=== PATIENT | female | born 2000 | race Caucasian/White ===

== ENCOUNTER 2020-11-09 12:14 | Inpatient (IN) ==
[2020-11-09 13:00] LABS: Appearance Urine Cloudy (Clear); Bacteria Urine Automated 2+ (Negative); Blood Urine 3+ (Negative); Color Urine Dark Yellow; Epithelial Cell Urine Auto >30 /lpf (0-5); Glucose Urine UA Negative (Negative); Ketones Urine 3+ (Negative); Leukocyte Esterase Urine 2+ (Negative); Nitrite Urine Negative (Negative); Pregnancy Test, Urine Negative (Negative); Protein Urine 1+ (Negative); Specific Gravity Urine 1.036 (1.000-1.030); Urobilinogen Urine Negative (Negative); WBC Urine Automated >30 /hpf (0-5)
[2020-11-09 13:05] LABS: Bilirubin Urine 1+ (Negative)
[2020-11-09 13:09] LABS: Basophils # (auto) 0.01 K/uL (0-0.2); Basophils % (auto) 0.1 %; Eosinophils # (auto) 0.01 K/uL (0-0.5); Eosinophils % (auto) 0.1 %; Hematocrit (blood only) 38.1 % (37-47); Immature Granulocytes # (auto) 0.01 K/uL (0.00-0.02); Immature Granulocytes % (auto) 0.1 %; Lymphocytes # (auto) 2.02 K/uL (1.2-3.4); Lymphocytes % (auto) 26.2 %; Mean Corpuscular Hgb Conc 34.1 g/dL (32-36); Mean Corpuscular Volume 82.1 fL (80-100); Mean Platelet Volume 9.8 fL (7.4-10.4); Monocytes # (auto) 0.31 K/uL (0.11-0.59); Neutrophils # (auto) 5.35 K/uL (1.4-6.5); Neutrophils % (auto) 69.5 %; Platelet Count 264 K/uL (130-400); RDW Coefficient of Variation 13.5 % (11.5-14.5); RDW Standard Deviation 40.9 fL (36.4-46.3); Red Blood Count 4.64 M/uL (4.2-5.4); White Blood Count 7.71 K/uL (4.8-10.8)
[2020-11-09 13:18] LABS: Mucus Urine Present (None Prsent)
[2020-11-09 13:25] LABS: Amphetamines+Metham, Urine Neg (Neg); Barbiturates, Urine Neg (Neg); Benzodiazepine, Urine Neg (Neg); Cocaine, Urine Neg (Neg); MDMA (Ecstacy), Urine Neg (Neg); Methadone, Urine Neg (Neg); Opiate, Urine Neg (Neg); Phencyclidine, Urine Neg (Neg)
[2020-11-09 13:26] LABS: Albumin Level 3.8 gm/dl (3.4-5.0); BUN Creatinine Ratio 20.8 (10-20); Calcium 9.3 mg/dl (8.5-10.1); Creatinine Clr Calc Pharmacy 118.7 ml/min; Est GFR (African American) 149.4; Est GFR (Non-African American) 128.9; Potassium 3.7 mmol/L (3.5-5.1)
[2020-11-09 13:37] LABS: Albumin Globulin Ratio 0.8 (0.9-2); Bilirubin,Total 0.4 mg/dl (0.2-1); Globulin 4.6 gm/dl (2.5-4.0); Thyroid Stimulating Hormone 0.517 uIu/ml (0.300-4.500); Total Protein 8.4 gm/dl (6.4-8.2)
[2020-11-09 13:38] LABS: Acetaminophen < 2 ug/ml (10-30)
[2020-11-09 13:39] LABS: Salicylate < 1.7 mg/dl (2.8-20)
--- NOTE | 2020-11-09 14:55 | Emergency Department Note ---
Impression & Plan Mood disorder ED Provider Note NAME: CHIQUI BERGERON AGE: 20 SEX: F : 2000 ARRIVES VIA: [employer] INFORMANT: [Patient][, ] ED PROVIDER(S): [Butch Patel MD] CHIEF COMPLAINT: suicidal HPI: This is a 20-year-old female who presents emergency department complaining of feeling suicidal. The patient reports she had a recent break-up with an ex- boyfriend. She began texting him today and he replied with some "hurtful words". The patient then cut herself. An unknown individual called the police who found the patient at her dorm room. I will note that the patient was recently here in the emergency department for feeling depression. She reports nothing has made the suicidal thoughts better or worse. She has not taken anything for the suicidal thoughts prior to arrival. The patient does have a history of attempting to hang herself back in 2019. ROS: See above HPI for pertinent positives & negatives. A total of 10 systems reviewed and were otherwise negative. PAST MEDICAL HISTORY: See Below PAST SURGICAL HISTORY: See Below FAMILY HISTORY: See Below SOCIAL HISTORY: See Below HOME MEDICATIONS: See Below ALLERGIES: See Below VITALS: See Below PHYSICAL EXAMINATION: VITAL SIGNS - Vital signs and nursing notes were reviewed. GENERAL - 20-year-old female appearing stated age who is in no acute distress. Communicates well with provider and answers questions appropriately. SKIN - Without rashes. HEAD - NC/AT. EYES - PERRL with EOMI bilaterally. Sclera anicteric. Palpebral conjunctiva pink and moist with no injection noted. EARS - No deformities of external structures noted on gross examination bilaterally. NOSE - Midline and without cyanosis. No epistaxis or purulent drainage noted. Septum midline without deviation or septal hematoma noted. MOUTH/OROPHARYNX - Without perioral cyanosis. Buccal mucosa pink and moist and without leukoplakia. Tongue midline with equal elevation of palate bilaterally. No tonsillar hypertrophy, erythema, or exudates noted. NECK - Neck with FROM. Supple to palpation. No nuchal rigidity. LUNGS - Chest wall symmetric without accessory muscle use, intercostals retractions, or central cyanosis. Normal vesicular breath sounds CTA B/L. No wheezes, rales, or rhonchi appreciated. CARDIAC - RRR with S1/S2. No murmur, rubs, or gallops appreciated. ABDOMEN - Abdominal contour without pulsations or visible masses. BS normoactive all four quadrants. No tenderness, palpable masses, hepatosplenomeg melanie, or ascites noted. EXTREMITIES - No clubbing or peripheral cyanosis. No pretibial edema present. +3/5 radial, posterior tibial, and dorsalis pedis pulses palpated throughout. +5/5 strength noted in UE/LE bilaterally. NEUROLOGIC - Cranial nerves II through XII grossly intact. Sensory intact to light touch throughout. Patellar reflexes +2/4. PSYCH - A&Ox3 and cooperates fully with examiner. Pt is very pleasant and interacts well with examiner. MEDICAL DECISION MAKING: Patient was seen and evaluated as above in room A7. Review was performed of nursing notes and vital signs. I did review pertinent previous visits and patient history. After obtaining a thorough history and physical examination the above work up was performed. This is a 20-year-old female who presents emergency department complaining of mood disorder. The patient apparently has a plan to cut herself to commit tomas cide. She comes in with superficial abrasions. I will note that this is the patient's second visit to the emergency department this week. Based on this I strongly recommended that the patient have an inpatient stay as I am concerned about her escalating behavior. I did discuss the patient's urinalysis with the patient. She does not feels that she is having any symptoms so at this point we will hold off on an antibiotic until urine culture grows out. Patient is in agreement with the treatment plan. She was then medically cleared by me and independently evaluated by psychiatric case management who also felt that the patient is a high risk patient to go home. The patient was subsequently admitted to 3 . The patient was evaluated during a period of high volume and high acuity during the global COVID-19 pandemic, and that diagnosis was suspected/considered upon their initial presentation. Their evaluation, treatment and testing was consistent with current guidelines for patients who present with complaints or symptoms that may be related to COVID-19. Patient was seen while provider was wearing PPE. Triage Nursing notes reviewed. Prior medical records reviewed Vital Signs: reviewed and remarkable for no significant abnormalities Differential diagnosis: Mood disorder, infection, hypoglycemia, electrolyte abnormalities, cardiac sources, intracerebral event, toxicologic, trauma, neurologic, as well as other pathologies. ER treatment provided: See below Past Med/Surg History Medical History (Updated 11/11/20 @ 15:13 by Butch Patel MD) Anxiety No significant past medical history Suicidal ideation Surgical History No significant past surgical history Social History Smoking Status: Never smoker Preferred Language: [place] Communication Ability: Effective Beliefs That Will Affect Care: Holiness Holiness Beliefs: anglican marital status: Single current occupational status: student Feels Safe at Home: Yes Assistive Devices: Contacts Allergies Allergies Allergy/AdvReac Type Severity Reaction Status Date / Time nitrofurantoin Allergy Rash Verified 11/09/20 16:47 [From Macrobid] sulfamethoxazole Allergy Rash Verified 11/09/20 16:47 [From Bactrim] trimethoprim [From Bactrim] Allergy Rash Verified 11/09/20 16:47 Home Meds Home Medications Medication Instructions Recorded Confirmed drospirenone-ethinyl estradiol 1 tab PO DAILY 10/31/20 11/09/20 [Nani ()] escitalopram oxalate 15 mg PO DAILY 10/31/20 11/09/20 Results & Data (ED) Vital Signs Vital Signs - 24 hr 11/09/20 12:23 11/09/20 14:48 Temperature 37.3 C Temperature Source Oral Pulse Rate 85 Pulse Rate [Right Finger] 65 Pulse Rhythm Regular Pulse Strength Normal Respiratory Rate 16 16 Respiratory Effort / Characteristics Non-Labored Spontaneous Non-Labored Spontaneous Respiratory Depth Normal Normal Blood Pressure 118/74 Blood Pressure [Right Arm] 117/65 Blood Pressure Mean 88 Blood Pressure Mean [Right Arm] 82 Blood Pressure Position Sitting Pulse Oximetry 100 100 Oxygen Delivery Method Room Air Room Air Laboratory Data Result diagrams: 11/09/20 12:55 11/09/20 12:55 Lab Results 11/09/20 11/09/20 11/09/20 Range/Units 12:22 12:22 12:22 WBC (4.8-10.8) K/uL RBC (4.2-5.4) M/uL Hgb (12.0-16.0) g/dL Hct (37-47) % MCV (80-100) fL MCH (25-34) pg MCHC (32-36) g/dL RDW Std Deviation (36.4-46.3) fL RDW Coeff of Tony (11.5-14.5) % Plt Count (130-400) K/uL MPV (7.4-10.4) fL Immature Gran % (Auto) % Neut % (Auto) % Lymph % (Auto) % Routt % (Auto) % Eos % (Auto) % Baso % (Auto) % Neut # (Auto) (1.4-6.5) K/uL Lymph # (Auto) (1.2-3.4) K/uL Routt # (Auto) (0.11-0.59) K/uL Eos # (Auto) (0-0.5) K/uL Baso # (Auto) (0-0.2) K/uL Immature Gran # (Auto) (0.00-0.02) K/uL Sodium (136-145) mmol/L Potassium (3.5-5.1) mmol/L Chloride (98-107) mmol/L Carbon Dioxide (21-32) mmol/L Anion Gap (3-11) BUN (7-18) mg/dl Creatinine (0.6-1.2) mg/dl Est Cr Clr Drug Dosing ml/min Est GFR ( Amer) Est GFR (Non-Af Amer) BUN/Creatinine Ratio (10-20) Glucose (70-99) mg/dl Calcium (8.5-10.1) mg/dl Total Bilirubin (0.2-1) mg/dl AST (15-37) U/L ALT (12-78) U/L Alkaline Phosphatase (45-117) U/L Total Protein (6.4-8.2) gm/dl Albumin (3.4-5.0) gm/dl Globulin (2.5-4.0) gm/dl Albumin/Globulin Ratio (0.9-2) TSH (0.300-4.500) uIu/ml Urine Color Dark Yellow Urine Appearance Cloudy A (Clear) Urine pH 6.0 (4.5-7.5) Ur Specific [place] 1.036 H (1.000-1.030) Urine Protein 1+ H (Negative) Urine Glucose (UA) Negative (Negative) Urine Ketones 3+ H (Negative) Urine Blood 3+ H (Negative) Urine Nitrite Negative (Negative) Urine Bilirubin 1+ H (Negative) Urine Urobilinogen Negative (Negative) Ur Leukocyte Esterase 2+ H (Negative) Urine WBC (Auto) >30 H (0-5) /hpf Urine RBC (Auto) 5-10 H (0-4) /hpf U Hyaline Cast (Auto) 1-5 (0-5) /lpf U Epithel Cells (Auto) >30 H (0-5) /lpf Urine Bacteria (Auto) 2+ H (Negative) Urine Mucus Present A (None Prsent) Urine Yeast Not Reportable Urine Test Negative (Negative) Salicylates (2.8-20) mg/dl Urine Opiates Screen Neg (Neg) Ur Methadone, Qual Neg (Neg) Acetaminophen (10-30) ug/ml Urine Barbiturates Neg (Neg) Ur Phencyclidine (PCP) Neg (Neg) U Amphetamin/Meth Scrn Neg (Neg) MDMA (Ecstasy) Screen Neg (Neg) U Benzodiazepines Scrn Neg (Neg) Ur Cocaine Metabolite Neg (Neg) U Marijuana (THC) Screen Neg (Neg) Ethyl Alcohol mg/dL (0-3) mg/dl COVID-19 Eval Order SARS-CoV-2 (PCR) (Negative) Influenza Type A (PCR) (Neg) Influenza Type B (PCR) (Neg) RSV (RT-PCR) (Neg) 11/09/20 11/09/20 11/09/20 Range/Units 12:55 12:55 12:55 WBC 7.71 (4.8-10.8) K/uL RBC 4.64 (4.2-5.4) M/uL Hgb 13.0 (12.0-16.0) g/dL Hct 38.1 (37-47) % MCV 82.1 (80-100) fL MCH 28.0 (25-34) pg MCHC 34.1 (32-36) g/dL RDW Std Deviation 40.9 (36.4-46.3) fL RDW Coeff of Tony 13.5 (11.5-14.5) % Plt Count 264 (130-400) K/uL MPV 9.8 (7.4-10.4) fL Immature Gran % (Auto) 0.1 % Neut % (Auto) 69.5 % Lymph % (Auto) 26.2 % Routt % (Auto) 4.0 % Eos % (Auto) 0.1 % Baso % (Auto) 0.1 % Neut # (Auto) 5.35 (1.4-6.5) K/uL Lymph # (Auto) 2.02 (1.2-3.4) K/uL [place] # (Auto) 0.31 (0.11-0.59) K/uL Eos # (Auto) 0.01 (0-0.5) K/uL Baso # (Auto) 0.01 (0-0.2) K/uL Immature Gran # (Auto) 0.01 (0.00-0.02) K/uL Sodium 139 (136-145) mmol/L Potassium 3.7 (3.5-5.1) mmol/L Chloride 108 H (98-107) mmol/L Carbon Dioxide 22 (21-32) mmol/L Anion Gap 9.0 (3-11) BUN 13 (7-18) mg/dl Creatinine 0.62 (0.6-1.2) mg/dl Est Cr Clr Drug Dosing 118.7 ml/min Est GFR ( Amer) 149.4 Est GFR (Non-Af Amer) 128.9 BUN/Creatinine Ratio 20.8 H (10-20) Glucose 71 (70-99) mg/dl Calcium 9.3 (8.5-10.1) mg/dl Total Bilirubin 0.4 (0.2-1) mg/dl AST 22 (15-37) U/L ALT 25 (12-78) U/L Alkaline Phosphatase 68 (45-117) U/L Total Protein 8.4 H (6.4-8.2) gm/dl Albumin 3.8 (3.4-5.0) gm/dl Globulin 4.6 H (2.5-4.0) gm/dl Albumin/Globulin Ratio 0.8 L (0.9-2) TSH 0.517 (0.300-4.500) uIu/ml Urine Color Urine Appearance (Clear) Urine pH (4.5-7.5) Ur Specific [place] (1.000-1.030) Urine Protein (Negative) Urine Glucose (UA) (Negative) Urine Ketones (Negative) Urine Blood (Negative) Urine Nitrite (Negative) Urine Bilirubin (Negative) Urine Urobilinogen (Negative) Ur Leukocyte Esterase (Negative) Urine WBC (Auto) (0-5) /hpf Urine RBC (Auto) (0-4) /hpf U Hyaline Cast (Auto) (0-5) /lpf U Epithel Cells (Auto) (0-5) /lpf Urine Bacteria (Auto) (Negative) Urine Mucus (None Prsent) Urine Yeast Urine Test (Negative) Salicylates < 1.7 L (2.8-20) mg/dl Urine Opiates Screen (Neg) Ur Methadone, Qual (Neg) Acetaminophen < 2 L (10-30) ug/ml Urine Barbiturates (Neg) Ur Phencyclidine (PCP) (Neg) U Amphetamin/Meth Scrn (Neg) MDMA (Ecstasy) Screen (Neg) U Benzodiazepines Scrn (Neg) Ur Cocaine Metabolite (Neg) U Marijuana (THC) Screen (Neg) Ethyl Alcohol mg/dL (0-3) mg/dl COVID-19 Eval Order SARS-CoV-2 (PCR) (Negative) Influenza Type A (PCR) (Neg) Influenza Type B (PCR) (Neg) RSV (RT-PCR) (Neg) 11/09/20 11/09/20 11/09/20 Range/Units 12:55 16:40 16:40 WBC (4.8-10.8) K/uL RBC (4.2-5.4) M/uL Hgb (12.0-16.0) g/dL Hct (37-47) % MCV (80-100) fL MCH (25-34) pg MCHC (32-36) g/dL RDW Std Deviation (36.4-46.3) fL RDW Coeff of Tony (11.5-14.5) % Plt Count (130-400) K/uL MPV (7.4-10.4) fL Immature Gran % (Auto) % Neut % (Auto) % Lymph % (Auto) % [place] % (Auto) % Eos % (Auto) % Baso % (Auto) % Neut # (Auto) (1.4-6.5) K/uL Lymph # (Auto) (1.2-3.4) K/uL [place] # (Auto) (0.11-0.59) K/uL Eos # (Auto) (0-0.5) K/uL Baso # (Auto) (0-0.2) K/uL Immature Gran # (Auto) (0.00-0.02) K/uL Sodium (136-145) mmol/L Potassium (3.5-5.1) mmol/L Chloride (98-107) mmol/L Carbon Dioxide (21-32) mmol/L Anion Gap (3-11) BUN (7-18) mg/dl Creatinine (0.6-1.2) mg/dl Est Cr Clr Drug Dosing ml/min Est GFR ( Amer) Est GFR (Non-Af Amer) BUN/Creatinine Ratio (10-20) Glucose (70-99) mg/dl Calcium (8.5-10.1) mg/dl Total Bilirubin (0.2-1) mg/dl AST (15-37) U/L ALT (12-78) U/L Alkaline Phosphatase (45-117) U/L Total Protein (6.4-8.2) gm/dl Albumin (3.4-5.0) gm/dl Globulin (2.5-4.0) gm/dl Albumin/Globulin Ratio (0.9-2) TSH (0.300-4.500) uIu/ml Urine Color Urine Appearance (Clear) Urine pH (4.5-7.5) Ur Specific [place] (1.000-1.030) Urine Protein (Negative) Urine Glucose (UA) (Negative) Urine Ketones (Negative) Urine Blood (Negative) Urine Nitrite (Negative) Urine Bilirubin (Negative) Urine Urobilinogen (Negative) Ur Leukocyte Esterase (Negative) Urine WBC (Auto) (0-5) /hpf Urine RBC (Auto) (0-4) /hpf U Hyaline Cast (Auto) (0-5) /lpf U Epithel Cells (Auto) (0-5) /lpf Urine Bacteria (Auto) (Negative) Urine Mucus (None Prsent) Urine Yeast Urine Test (Negative) Salicylates (2.8-20) mg/dl Urine Opiates Screen (Neg) Ur Methadone, Qual (Neg) Acetaminophen (10-30) ug/ml Urine Barbiturates (Neg) Ur Phencyclidine (PCP) (Neg) U Amphetamin/Meth Scrn (Neg) MDMA (Ecstasy) Screen (Neg) U Benzodiazepines Scrn (Neg) Ur Cocaine Metabolite (Neg) U Marijuana (THC) Screen (Neg) Ethyl Alcohol mg/dL < 3.0 (0-3) mg/dl COVID-19 Eval Order [facility] at [facility] SARS-CoV-2 (PCR) NEGATIVE (Negative) Influenza Type A (PCR) Negative (Neg) Influenza Type B (PCR) Negative (Neg) RSV (RT-PCR) Negative (Neg) Administered Medications Buspirone HCl (Buspirone 5 Mg Tab) 5 mg PO BID [facility] Stop: 12/10/20 10:59 Last Admin: 11/11/20 09:06 Dose: 5 mg Documented by: [id number] Admin: 11/10/20 21:00 Dose: 5 mg Documented by: [id number] Admin: 11/10/20 11:23 Dose: 5 mg Documented by: [id number] *Vashtiyna*Non- Formulary Patient's Own Med 1 ea PO HS [facility]; Protocol Stop: 12/10/20 21:59 Last Admin: 11/11/20 09:38 Dose: 1 ea Documented by: [id number] Admin: 11/10/20 20:59 Dose: 1 ea Documented by: [id number] Discontinued Medications Escitalopram Oxalate ([facility]ital[facility] Ox[facility] 20 Mg Tab) [facility] [place] [facility] [place]: 12/10/20 08:59 Last Admin: 11/10/20 09:12 Dose: 20 mg Documented by: [id number] Discharge Plan Visit Data Chief Complaint: Mental Health Evaluation ED Provider: Butch Patel Discharge Problem: Mood disorder Patient Disposition: Admitted As Inpatient Discharge Instructions Interventions: ED Discharge Assessment Last Done: 11/09/20 19:30
[2020-11-09 18:02] LABS: Influenza A virus by PCR Negative (Neg); Influenza B virus by PCR Negative (Neg); RSV by PCR Negative (Neg); SARS CoV2 RNA(COVID-19) InHosp NEGATIVE (Negative)
[2020-11-09] MEDS ORDERED: ALUMINUM/MAGNESIUM SUSP 30 ML UDC PO PRN (19:22)
[2020-11-09] MEDS ORDERED: hydrOXYzine HCl 25 MG TAB PO PRN ×2 (19:22)
[2020-11-09] MEDS ORDERED: SODIUM CHLORIDE 0.65% NA SOLN 45 ML (OCEAN) PRN (19:22)
[2020-11-09] MEDS ORDERED: ACETAMINOPHEN 325 MG TAB PO PRN (19:22)
[2020-11-09] MEDS ORDERED: BISMUTH SUBSALICYLATE LIQD 236 ML PO PRN (19:22)
[2020-11-09] MEDS ORDERED: MAGNESIUM HYDROXIDE SUSP 30 ML UDC PO PRN (19:22)
--- NOTE | 2020-11-10 08:03 | History & Physical ---
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 (1) Suicidal ideation: 11/10 - Continue voluntary hospitalization, suicide checks for safety. - Encourage group attendance and participation, work on healthy coping skills and discharge safety plan. She would like a family meeting with her stepfather. - Coordinate w/ outpatient clinicians, will needs regular therapy and ongoing psychiatric care at discharge. (2) Depression: 11/10 - Exacerbated by recent breakup and hurtful statements from exboyfriend. Focused on wanting a short stay, with discharge over the weekend, as parents are coming and she plans to return home with them to [place]. - She has lost pavan in the escitalopram, does not feel it is helping sufficiently, and would like to try a different medication. She has no previous med trials, discussed trial of another SSRI, vs augmentation with buspirone. She would like to continue escitalopram 20 mg at bedtime and add buspirone to target anxiety, Will start 5mg bid and titrate as tolerated. Reviewed risks, benefits and side effects. Active/Remission status: currently active Depression Type: major depressive disorder Major depression episode severity: unspecified Major depression recurrence: recurrent Qualified Code(s): F33.9 - Major depressive disorder, recurrent, unspecified (3) Anxiety: 11/10 - symptoms of panic and CLIVE, has responded to SSRI, which was just increased 5 days ago as above. 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 Chief Complaint "A little overwhelmed". History of Present Illness Patient presented to the ER with suicidality, stating she recently had a break- up with her boyfriend 2 weeks ago, and they had been communicating by text and he said some "hurtful words." She cut her wrist, and an unknown individual then found her in her dorm room and called police. She had been seen in the ER a week prior for depression with fleeting suicidal thoughts in the context of the break-up, and was discharged home. She reported multiple stressors including the break-up, strained relationship with her mother, school, loneliness, and her mental health problems. She stated her psychiatrist in [place] had increased her Escitalopram last Saturday from 15 mg to 20 mg daily. She reported frequent crying spells, helplessness, hopelessness, low self-worth, difficulty functioning, poor motivation, decreased sleep and appetite, and loss of interest in most activities. She reported feeling anxious and overwhelmed on a daily basis. Inpatient treatment was recommended, and she was reluctant to sign herself in as she feared repercussions from her mother. She did call and speak to her stepfather on the phone, and then agreed to inpatient treatment. Admission labs notable for UA with elevated specific gravity, 1+ protein, 3+ ketones and blood, 1+ bilirubin, 2+ leukocyte esterase, > 30 WBCs and epithelial cells, and 2+ bacteria. Similar results from ER visit last week, with urine culture showing lactobacillus species. Urine culture from yesterday still pending. On my assessment, she states her boyfriend of 7 months broke up with her two weeks which has exacerbated mood. He ended the relationship "because of my mental health he didn't want to deal with me." She didn't want to he relationship to end and "tried to fix it," but now thinks it is for the best, as he made some very hurtful comments. She contacted her ex yesterday which made her feel worse, and she made comments that she "can't deal with this anymore," and tried to cut her wrist (no lesions visible, says it was a light scratch). Her ex called police who brought her here, and she is upset that she was hospitalized. Her mood has been "off" for the past month, and prior to that she had mostly anxiety. She identifies her boyfriend's "reaction to my anxiety" as the trigger for her depression, as she had tried to open up to him about how she was feeling and "it blew up in my face." She has a roommate who is supportive. She reports panic attacks with "nonstop crying and screaming" that used to last hours prior to starting medication, but now last 10-15 min. The past few weeks she has been ruminating on getting her boyfriend back. Is not sure if she worries excessively. 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 She has had suicidal thoughts "a couple times" in the past year. She's been on Lexapro since 2018, increased from 15mg to 20mg daily last Saturday. Denies h/o manic or psychotic episodes, OCD, eating disorder. States she didn't think mother would support her being hospitalized as when she was in the ER last week, she discouraged it. Past Psychiatric History Previous Psych History: First got treatment summer 2018, was seeing a family therapist due to issues with her mother, who also has anxiety and "gets angry and defensive." She then started individual therapy with the same therapist whom she still sees, but had not seen her "in a while" until recently. Current Psychiatric Diagnosis: Depression and anxiety Outpatient Services: Psychiatry (Dr. April Briceno) and therapy (Jane Ontiveros) in [place], off and on for past 2 years Do You Have Access To A Gun?: No History of Previous Suicide Attempt: Yes Describe Attempts in the Past: Tavares melvin, summer 2018, parents interrupted, was not hospitalized Past Medication Trials: none Allergies Allergy/AdvReac Type Severity Reaction Status Date / Time nitrofurantoin Allergy Rash Verified 11/09/20 16:47 [From Macrobid] sulfamethoxazole Allergy Rash Verified 11/09/20 16:47 [From Bactrim] trimethoprim [From Bactrim] Allergy Rash Verified 11/09/20 16:47 Home Medications Medication Instructions Recorded Confirmed Type drospirenone-ethinyl estradiol 1 tab PO DAILY 10/31/20 11/09/20 History [Nani (27)] escitalopram oxalate 15 mg PO DAILY 10/31/20 11/09/20 History Family History Family History of: Anxiety (mother) Alcohol History Hx of Alcohol Use Over the Past 12 Months: No AUDIT Total Score: 2 Smoking Use Have You Smoked or Used Tobacco Products in the Last 30 Days: No Smoking Status: Never smoker Substance History Hx of Prescription Med Misuse Over the Past 12 Months: No Hx of Over the Counter Med Misuse Over the Past 12 Months: No Hx of Inhalent Misuse Over the Past 12 Months: No Hx of Organic Substance Use Over the Past 12 Months: No Hx of Illegal Substances/Street Drug Use Over Past 12 Months: No Problems as a Result of Past Substance Use: None Identified Personal History Living Arrangements: Apartment Living Arrangements Comments: in [place] with several roommates Childhood: Grew up in [facility], parents when she was 4, and mother remarried when she was 8. Father also remarried, moved to [place], and did not speak to him or her stepfather for a few years, but reconciled a few years ago. Reports good relationship with all parents now. 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) Marital Status: Single Beliefs That Will Affect Care: Denominational Current Legal Problems: No Hx Traumatic Life Events: Yes Psychological Trauma History Comment: grandmother of cancer when patient was 13, was on hospice in their house Patient History Medical History (Updated 11/10/20 @ 10:23 by Francesca Scruggs MD) Anxiety No significant past medical history Suicidal ideation Surgical History No significant past surgical history Social History Smoking Status: Never smoker Preferred Language: Swedish Communication Ability: Effective Beliefs That Will Affect Care: Denominational Denominational Beliefs: lutheran marital status: Single current occupational status: student Feels Safe at Home: Yes Assistive Devices: Contacts Review of Systems Review of Systems: All systems reviewed & are unremarkable except as noted in Subjective Denies UTI and yeast infection symptoms Physical Exam Psychiatric: Orientation: alert and cooperative Apperance: appropriately dressed, appropriately groomed and appeared stated age Eye Contact: good eye contact Motor Behavior: steady gait and station and no abnormal motor movements Speech: normal rate/rhythm/volume of speech Affect: + depressed affect, + tearful affect and mood congruent with affect Mood: + depressed mood and + anxious mood Thought Process: goal directed thought process and linear/logical thought process Thought Content: reality based without delusions Suicidal Thoughts: denies suicidal thoughts Homicidal Thoughts: denies homicidal thoughts Hallucinations: no auditory hallucinations and no visual hallucinations Cognition: recent memory grossly intact, attention grossly intact and language grossly intact Vital Signs (Past 24 Hours): Last Vital Signs Temp 36.6 C 11/10/20 06:50 Pulse 91 H 11/10/20 06:51 Resp 16 11/10/20 06:50 BP 99/61 L 11/10/20 06:51 Pulse Ox 100 11/09/20 19:30 Exam Statement: A physical exam was performed in the ER prior to admission to the unit by Dr. Patel. I accept that physical as correct/medical clearance for the inpatient physical exam. Currently menstruating Results & Data ([facility]) Laboratory Results Laboratory Results - last 24 hr 11/09/20 11/09/20 11/09/20 12:22 12:22 12:22 WBC RBC Hgb Hct MCV MCH MCHC RDW Std Deviation RDW Coeff of Tony Plt Count MPV Immature Gran % (Auto) Neut % (Auto) Lymph % (Auto) [place] % (Auto) Eos % (Auto) Baso % (Auto) Neut # (Auto) Lymph # (Auto) [place] # (Auto) Eos # (Auto) Baso # (Auto) Immature Gran # (Auto) Sodium Potassium Chloride Carbon Dioxide Anion Gap BUN Creatinine Est Cr Clr Drug Dosing Est GFR ( Amer) Est GFR (Non-Af Amer) BUN/Creatinine Ratio Glucose Calcium Total Bilirubin AST ALT Alkaline Phosphatase Total Protein Albumin Globulin Albumin/Globulin Ratio TSH Urine Color Dark Yellow Urine Appearance Cloudy A Urine pH 6.0 Ur Specific [place] 1.036 H Urine Protein 1+ H Urine Glucose (UA) Negative Urine Ketones 3+ H Urine Blood 3+ H Urine Nitrite Negative Urine Bilirubin 1+ H Urine Urobilinogen Negative Ur Leukocyte Esterase 2+ H Urine WBC (Auto) >30 H Urine RBC (Auto) 5-10 H U Hyaline Cast (Auto) 1-5 U Epithel Cells (Auto) >30 H Urine Bacteria (Auto) 2+ H Urine Mucus Present A Urine Yeast Not Reportable Urine Test Negative Salicylates Urine Opiates Screen Neg Ur Methadone, Qual Neg Acetaminophen Urine Barbiturates Neg Ur Phencyclidine (PCP) Neg U Amphetamin/Meth Scrn Neg MDMA (Ecstasy) Screen Neg U Benzodiazepines Scrn Neg Ur Cocaine Metabolite Neg U Marijuana (THC) Screen Neg Ethyl Alcohol mg/dL COVID-19 Eval Order SARS-CoV-2 (PCR) Influenza Type A (PCR) Influenza Type B (PCR) RSV (RT-PCR) 11/09/20 11/09/20 11/09/20 12:55 12:55 12:55 WBC 7.71 RBC 4.64 Hgb 13.0 Hct 38.1 MCV 82.1 MCH 28.0 MCHC 34.1 RDW Std Deviation 40.9 RDW Coeff of Tony 13.5 Plt Count 264 MPV 9.8 Immature Gran % (Auto) 0.1 Neut % (Auto) 69.5 Lymph % (Auto) 26.2 [place] % (Auto) 4.0 Eos % (Auto) 0.1 Baso % (Auto) 0.1 Neut # (Auto) 5.35 Lymph # (Auto) 2.02 [place] # (Auto) 0.31 Eos # (Auto) 0.01 Baso # (Auto) 0.01 Immature Gran # (Auto) 0.01 Sodium 139 Potassium 3.7 Chloride 108 H Carbon Dioxide 22 Anion Gap 9.0 BUN 13 Creatinine 0.62 Est Cr Clr Drug Dosing 118.7 Est GFR ( Amer) 149.4 Est GFR (Non-Af Amer) 128.9 BUN/Creatinine Ratio 20.8 H Glucose 71 Calcium 9.3 Total Bilirubin 0.4 AST 22 ALT 25 Alkaline Phosphatase 68 Total Protein 8.4 H Albumin 3.8 Globulin 4.6 H Albumin/Globulin Ratio 0.8 L TSH 0.517 Urine Color Urine Appearance Urine pH Ur Specific [place] Urine Protein Urine Glucose (UA) Urine Ketones Urine Blood Urine Nitrite Urine Bilirubin Urine Urobilinogen Ur Leukocyte Esterase Urine WBC (Auto) Urine RBC (Auto) U Hyaline Cast (Auto) U Epithel Cells (Auto) Urine Bacteria (Auto) Urine Mucus Urine Yeast Urine Test Salicylates < 1.7 L Urine Opiates Screen Ur Methadone, Qual Acetaminophen < 2 L Urine Barbiturates Ur Phencyclidine (PCP) U Amphetamin/Meth Scrn MDMA (Ecstasy) Screen U Benzodiazepines Scrn Ur Cocaine Metabolite U Marijuana (THC) Screen Ethyl Alcohol mg/dL COVID-19 Eval Order SARS-CoV-2 (PCR) Influenza Type A (PCR) Influenza Type B (PCR) RSV (RT-PCR) 11/09/20 11/09/20 11/09/20 12:55 16:40 16:40 WBC RBC Hgb Hct MCV MCH MCHC RDW Std Deviation RDW Coeff of Tony Plt Count MPV Immature Gran % (Auto) Neut % (Auto) Lymph % (Auto) [place] % (Auto) Eos % (Auto) Baso % (Auto) Neut # (Auto) Lymph # (Auto) [place] # (Auto) Eos # (Auto) Baso # (Auto) Immature Gran # (Auto) Sodium Potassium Chloride Carbon Dioxide Anion Gap BUN Creatinine Est Cr Clr Drug Dosing Est GFR ( Amer) Est GFR (Non-Af Amer) BUN/Creatinine Ratio Glucose Calcium Total Bilirubin AST ALT Alkaline Phosphatase Total Protein Albumin Globulin Albumin/Globulin Ratio TSH Urine Color Urine Appearance Urine pH Ur Specific [place] Urine Protein Urine Glucose (UA) Urine Ketones Urine Blood Urine Nitrite Urine Bilirubin Urine Urobilinogen Ur Leukocyte Esterase Urine WBC (Auto) Urine RBC (Auto) U Hyaline Cast (Auto) U Epithel Cells (Auto) Urine Bacteria (Auto) Urine Mucus Urine Yeast Urine Test Salicylates Urine Opiates Screen Ur Methadone, Qual Acetaminophen Urine Barbiturates Ur Phencyclidine (PCP) U Amphetamin/Meth Scrn MDMA (Ecstasy) Screen U Benzodiazepines Scrn Ur Cocaine Metabolite U Marijuana (THC) Screen Ethyl Alcohol mg/dL < 3.0 COVID-19 Eval Order [facility] at [facility] SARS-CoV-2 (PCR) NEGATIVE Influenza Type A (PCR) Negative Influenza Type B (PCR) Negative RSV (RT-PCR) Negative Current Inpatient Medications Current Inpatient Medications: Current Inpatient Medications Acetaminophen (Acetaminophen 325 Mg Tab) 650 mg PO Q4H PRN PRN Reason: Headache or Minor Fever Stop: 12/09/20 19:21 Al Hydrox/Mg Hydrox/Simethicone (Aluminum/Magnesium Susp 30 Ml Udc) 30 ml PO Q4H PRN PRN Reason: GI Upset Stop: 12/09/20 19:21 Bismuth Subsalicylate (Bismuth Subsalicylate Liqd 236 Ml) 15 ml PO PRN PRN PRN Reason: Loose Stool Stop: 12/09/20 19:21 Escitalopram Oxalate (Escitalopram Oxalate 20 Mg Tab) 20 mg PO QAM MOISÉS Stop: 12/10/20 08:59 Hydroxyzine HCl (Hydroxyzine Hcl 25 Mg Tab) 50 mg PO HSZ PRN PRN Reason: Insomnia Stop: 12/09/20 19:21 Hydroxyzine HCl (Hydroxyzine Hcl 25 Mg Tab) 25 mg PO Q4H PRN PRN Reason: Anxiety Stop: 12/09/20 19:21 Magnesium Hydroxide (Magnesium Hydroxide Susp 30 Ml Udc) 30 ml PO DAILY PRN PRN Reason: Constipation Stop: 12/09/20 19:21 Sodium Chloride (Sodium Chloride 0.65% Na Soln 45 Ml ([place])) 1 - 2 sprays NA PRN PRN PRN Reason: Nasal Dryness/Congestion Stop: 12/09/20 19:21
[2020-11-10] MEDS ORDERED: ESCITALOPRAM OXALATE 20 MG TAB PO SCH (09:00)
[2020-11-10] MEDS ORDERED: DROSPIRENONE ETHINYL ESTRADIOL PO SCH (10:00)
[2020-11-10] MEDS: busPIRone 5 MG TAB PO SCH ×2 (11:23→21:00)
[2020-11-10] MEDS: LORYNA PO SCH (20:59)
[2020-11-11] MEDS: busPIRone 5 MG TAB PO SCH ×2 (09:06→21:21)
--- NOTE | 2020-11-11 09:33 | Psychiatric Progress Note ---
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 (1) Suicidal ideation: 11/10 - Continue voluntary hospitalization, suicide checks for safety. - Encourage group attendance and participation, work on healthy coping skills and discharge safety plan. She would like a family meeting with her stepfather. - Coordinate w/ outpatient clinicians, will needs regular therapy and ongoing psychiatric care at discharge. 11/11 - Pt denying SI today, assist with completion of written safety plan (2) Depression: 11/10 - Exacerbated by recent breakup and hurtful statements from exboyfriend. Focused on wanting a short stay, with discharge over the weekend, as parents are coming and she plans to return home with them to [place]. - She has lost pavan in the escitalopram, does not feel it is helping sufficiently, and would like to try a different medication. She has no previous med trials, discussed trial of another SSRI, vs augmentation with buspirone. She would like to continue escitalopram 20 mg at bedtime and add buspirone to target anxiety, Will start 5mg bid and titrate as tolerated. Reviewed risks, benefits and side effects. 11/11 - Continue current medication regimen. - Family meeting with parents yesterday, reportedly went well though there will be an ongoing need for open and honest communication with supports - Continue to encourage participation with group programming - Assist with completion of a written safety plan (3) Anxiety: 11/10 - symptoms of panic and CLIVE, has responded to SSRI, which was just increased 5 days ago as above. 11/11 - Continue as above - pt reporting initial fatigue with addition of buspirone, so will keep dose consistent for now. We did discuss option to continue titration as tolerated - Continue to assist with development of healthy and effective coping strategies Risk Factors Assessment Male: No : Yes Do You Have Access To A Gun?: No Health Problems: No Mental Health Diagnoses: Yes Substance Use Disorders: No Previous Attempt: Yes Family History of Suicide: No Previous Psychiatric Hospitalization: No Hopelessness: No Smoker: No Protective Factors Assessment : No Responsible for Young Children: No Employed: No Stable Relationships: Yes Supportive Family: Yes Good Rapport with Provider: Yes Interval History Identifying Information CHIQUI BERGERON is a 20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 Chief Complaint "Um, I've been very tired today, but mentally I'm very good." Review of Systems Notes Constitutional: reports fatigue today Cardiovascular: denied Respiratory: denied Gastrointestinal: denied Neurological: denied Psychiatric: denies symptoms other than stated above Total of at least 10 systems reviewed, pertinent positives as above and in HPI. Sleep Information Total Hours of Sleep: 6.5 Meal Information Percent Meal Consumed - Breakfast: 0 Percent Meal Consumed - Lunch: 100 Percent Meal Consumed - Dinner: 50 Nutrition Comment: pt. slept in Subjective Subjective Patient was seen & assessed and interval progress reviewed with treatment team. Staff report the patient has been participating in group and recreational programming. Pt had a family meeting with parents yesterday and has reportedly been processing feelings of abandonment, reportedly resurfacing in the context of recent break-up. Pt was seen today to assess progress since admission. Pt states she is doing well overall, and reports "I've been very tired today, but mentally I'm very good." She states it has been helpful to talk to individuals who have been going through similar circumstances. Pt states that she had a positive meeting with her parents. Plan was initially for her to return home with them when they arrive to town on Saturday, but she is now hoping to stay with her roommates and leave earlier. It does seem that she is benefitting from her time here, and she does deny continued SI. Pt states she has been working through her patient workbook, specifically sections on stress management and positive affirmations. Physical Exam Psychiatric Orientation: alert, oriented x 3 and cooperative Apperance: appropriately dressed, appropriately groomed and appeared stated age Eye Contact: good eye contact Motor Behavior: steady gait and station and no abnormal motor movements Speech: normal rate/rhythm/volume of speech Affect: + depressed affect and + tearful affect Mood: + depressed mood and + anxious mood though reports overall improvement with both Thought Process: goal directed thought process and clear/coherent thought process Thought Content: reality based without delusions; no hopelessness and no worthlessness Suicidal Thoughts: denies suicidal thoughts and denies suicidal intent Homicidal Thoughts: denies homicidal thoughts Hallucinations: no auditory hallucinations and no visual hallucinations Cognition: attention grossly intact and language grossly intact Estimated Intelligence: consistent with education level Insight: + fair insight Judgement: + fair judgement Vital Signs (Past 24 Hours) Last Vital Signs Temp 36.6 C 11/11/20 06:51 Pulse 91 H 11/11/20 06:52 Resp 16 11/11/20 06:51 BP 94/58 L 11/11/20 06:52 Pulse Ox 100 11/09/20 19:30 Results & Data ([facility] [place]) Current Inpatient Medications Current Inpatient Medications: Current Inpatient Medications Acetaminophen (Acetaminophen 325 Mg Tab) 650 mg PO Q4H PRN PRN Reason: Headache or Minor Fever Stop: 12/09/20 19:21 Al Hydrox/Mg Hydrox/Simethicone (Aluminum/Magnesium Susp 30 Ml Udc) 30 ml PO Q4H PRN PRN Reason: GI Upset Stop: 12/09/20 19:21 Bismuth Subsalicylate (Bismuth Subsalicylate Liqd 236 Ml) 15 ml PO PRN PRN PRN Reason: Loose Stool Stop: 12/09/20 19:21 Buspirone HCl (Buspirone 5 Mg Tab) 5 mg PO BID MOISÉS Stop: 12/10/20 10:59 Last Admin: 11/11/20 09:06 Dose: 5 mg Documented by: Escitalopram Oxalate (Escitalopram Oxalate 20 Mg Tab) 20 mg PO HS MOISÉS Stop: 12/11/20 21:59 Hydroxyzine HCl (Hydroxyzine Hcl 25 Mg Tab) 50 mg PO HSZ PRN PRN Reason: Insomnia Stop: 12/09/20 19:21 Hydroxyzine HCl (Hydroxyzine Hcl 25 Mg Tab) 25 mg PO Q4H PRN PRN Reason: Anxiety Stop: 12/09/20 19:21 Magnesium Hydroxide (Magnesium Hydroxide Susp 30 Ml Udc) 30 ml PO DAILY PRN PRN Reason: Constipation Stop: 12/09/20 19:21 *[place]*Non- Formulary Patient's Own Med 1 ea PO HS MOISÉS; Protocol Stop: 12/10/20 21:59 Last Admin: 11/10/20 20:59 Dose: 1 ea Documented by: Sodium Chloride (Sodium Chloride 0.65% Na Soln 45 Ml ([place])) 1 - 2 sprays NA PRN PRN PRN Reason: Nasal Dryness/Congestion Stop: 12/09/20 19:21 Mental Health & Subst Abuse Tx Psychiatrist Date of Appointment with Psychiatrist: 11/29/20 Therapist Name of Therapist: Jane Hagan (private practice in [place]) Post Discharge Appointments Primary Care Physician Name Of Family Doctor: Dr. [facility] (1) Depression Active/Remission status: currently active Depression Type: major depressive disorder Major depression episode severity: unspecified Major depression recurrence: recurrent Qualified Code(s): F33.9 - Major depressive disorder, recurrent, unspecified
[2020-11-11] MEDS: LORYNA PO SCH ×2 (09:38→21:22)
[2020-11-11] MEDS: ESCITALOPRAM OXALATE 20 MG TAB PO SCH (21:21)
[2020-11-12] MEDS: busPIRone 5 MG TAB PO SCH ×2 (08:57→21:17)
[2020-11-12] MEDS: LORYNA PO SCH ×2 (08:59→21:17)
--- NOTE | 2020-11-12 10:32 | Psychiatric Progress Note ---
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 Reviewed 11/12/20. (1) Suicidal ideation: 11/10 - Continue voluntary hospitalization, suicide checks for safety. - Encourage group attendance and participation, work on healthy coping skills and discharge safety plan. She would like a family meeting with her stepfather. - Coordinate w/ outpatient clinicians, will needs regular therapy and ongoing psychiatric care at discharge. 11/11 - Pt denying SI today, assist with completion of written safety plan Reviewed 11/12/20. She was hoping for discharge today to spend time with friends but reviewed safety plan included family coming to transition home and she was agreeable to continue observation and treatment until tomorrow. (2) Depression: 11/10 - Exacerbated by recent breakup and hurtful statements from exboyfriend. Focused on wanting a short stay, with discharge over the weekend, as parents are coming and she plans to return home with them to [place]. - She has lost pavan in the escitalopram, does not feel it is helping sufficiently, and would like to try a different medication. She has no previous med trials, discussed trial of another SSRI, vs augmentation with buspirone. She would like to continue escitalopram 20 mg at bedtime and add buspirone to target anxiety, Will start 5mg bid and titrate as tolerated. Reviewed risks, benefits and side effects. 11/11 - Continue current medication regimen. - Family meeting with parents yesterday, reportedly went well though there will be an ongoing need for open and honest communication with supports - Continue to encourage participation with group programming - Assist with completion of a written safety plan Reviewed 11/12/20. Continue Lexapro. (3) Anxiety: 11/10 - symptoms of panic and CLIVE, has responded to SSRI, which was just increased 5 days ago as above. 11/11 - Continue as above - pt reporting initial fatigue with addition of buspirone, so will keep dose consistent for now. We did discuss option to continue titration as tolerated - Continue to assist with development of healthy and effective coping strategies Reviewed 11/12/20. Continue Buspar. 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 Reviewed 11/12/20. Chief Complaint "I was hoping to see my friends but also know the plan is for me to be with my parents so I'm not alone.". Review of Systems Sleep Information Total Hours of Sleep: 8 Meal Information Percent Meal Consumed - Breakfast: 50 Percent Meal Consumed - Lunch: 75 Percent Meal Consumed - Dinner: 100 Nutrition Comment: pt. slept in Subjective Subjective Patient was seen & assessed and interval progress reviewed with nursing and social work. Cooperative with unit routines. Feels calmer but also states that Dennis is slightly sedating though gets up earlier here than when not in the hospital. discussed her transition [facility] [place] for fall. Physical Exam Psychiatric Orientation: alert, oriented x 3 and cooperative Apperance: appropriately dressed, appropriately groomed and appeared stated age Eye Contact: good eye contact Motor Behavior: steady gait and station and no abnormal motor movements Speech: normal rate/rhythm/volume of speech Affect: + depressed affect Mood: + depressed mood Thought Process: goal directed thought process Thought Content: reality based without delusions Suicidal Thoughts: denies suicidal thoughts and denies suicidal intent Homicidal Thoughts: denies homicidal thoughts Hallucinations: no auditory hallucinations and no visual hallucinations Cognition: recent memory grossly intact, attention grossly intact and language grossly intact Estimated Intelligence: consistent with education level Insight: + fair insight Judgement: + fair judgement Vital Signs (Past 24 Hours) Last Vital Signs Temp 36.7 C 11/12/20 06:00 Pulse 92 H 11/12/20 06:44 Resp 16 11/12/20 06:00 BP 99/64 L 11/12/20 06:44 Pulse Ox 100 11/09/20 19:30 Results & Data ([facility]) Current Inpatient Medications Current Inpatient Medications: Current Inpatient Medications Acetaminophen (Acetaminophen 325 Mg Tab) 650 mg PO Q4H PRN PRN Reason: Headache or Minor Fever Stop: 12/09/20 19:21 Al Hydrox/Mg Hydrox/Simethicone (Aluminum/Magnesium Susp 30 Ml Udc) 30 ml PO Q4H PRN PRN Reason: GI Upset Stop: 12/09/20 19:21 Bismuth Subsalicylate (Bismuth Subsalicylate Liqd 236 Ml) 15 ml PO PRN PRN PRN Reason: Loose Stool Stop: 12/09/20 19:21 Buspirone HCl (Buspirone 5 Mg Tab) 5 mg PO BID MOISÉS Stop: 12/10/20 10:59 Last Admin: 11/12/20 08:57 Dose: 5 mg Documented by: Escitalopram Oxalate (Escitalopram Oxalate 20 Mg Tab) 20 mg PO HS MOISÉS Stop: 12/11/20 21:59 Last Admin: 11/11/20 21:21 Dose: 20 mg Documented by: Hydroxyzine HCl (Hydroxyzine Hcl 25 Mg Tab) 50 mg PO HSZ PRN PRN Reason: Insomnia Stop: 12/09/20 19:21 Hydroxyzine HCl (Hydroxyzine Hcl 25 Mg Tab) 25 mg PO Q4H PRN PRN Reason: Anxiety Stop: 12/09/20 19:21 Magnesium Hydroxide (Magnesium Hydroxide Susp 30 Ml Udc) 30 ml PO DAILY PRN PRN Reason: Constipation Stop: 12/09/20 19:21 *Loryna*Non- Formulary Patient's Own Med 1 ea PO HS MOISÉS; Protocol Stop: 12/10/20 21:59 Last Admin: 11/12/20 08:59 Dose: 1 ea Documented by: Sodium Chloride (Sodium Chloride 0.65% Na Soln 45 Ml (Jal)) 1 - 2 sprays NA PRN PRN PRN Reason: Nasal Dryness/Congestion Stop: 12/09/20 19:21 Mental Health & Subst Abuse Tx Psychiatrist Name of Psychiatrist: Dr. April Briceno Date of Appointment with Psychiatrist: 11/29/20 Time of Appointment with Psychiatrist: 11:30 Therapist Name of Therapist: Jane Hagan (private practice in [place]) Cam Milling Machine Operator Name of Cam Milling Machine Operator: [facility] Phone Number for Cam Milling Machine Operator: [phone] Date of Appointment with Cam Milling Machine Operator: 11/15/20 Time of Appointment with Cam Milling Machine Operator: 2:00 p.m. Case Management Appointment Comment: Will call you to discuss schooling Post Discharge Appointments Primary Care Physician Name Of Family Doctor: Dr. Owens [facility] (1) Depression Active/Remission status: currently active Depression Type: major depressive disorder Major depression episode severity: unspecified Major depression recurrence: recurrent Qualified Code(s): F33.9 - Major depressive disorder, recurrent, unspecified
[2020-11-12] MEDS: ESCITALOPRAM OXALATE 20 MG TAB PO SCH (21:17)
[2020-11-13] MEDS: busPIRone 5 MG TAB PO SCH (08:56)
--- NOTE | 2020-11-13 09:48 | Discharge Summary ---
Date of Service November 13, 2020 History of Present Illness per admitting provider: Patient presented to the ER with suicidality, stating she recently had a break-up with her boyfriend 2 weeks ago, and they had been communicating by text and he said some "hurtful words." She cut her wrist, and an unknown individual then found her in her dorm room and called police. She had been seen in the ER a week prior for depression with fleeting suicidal thoughts in the context of the break-up, and was discharged home. She reported multiple stressors including the break-up, strained relationship with her mother, school, loneliness, and her mental health problems. She stated her psychiatrist in [place] had increased her Escitalopram last Saturday from 15 mg to 20 mg daily. She reported frequent crying spells, helplessness, hopelessness, low self-worth, difficulty functioning, poor motivation, decreased sleep and appetite, and loss of interest in most activities. She reported feeling anxious and overwhelmed on a daily basis. Inpatient treatment was recommended, and she was reluctant to sign herself in as she feared repercussions from her mother. She did call and speak to her stepfather on the phone, and then agreed to inpatient treatment. Admission labs notable for UA with elevated specific gravity, 1+ protein, 3+ ketones and blood, 1+ bilirubin, 2+ leukocyte esterase, > 30 WBCs and epithelial cells, and 2+ bacteria. Similar results from ER visit last week, with urine culture showing lactobacillus species. Urine culture from yesterday still pending. On my assessment, she states her boyfriend of 7 months broke up with her two weeks which has exacerbated mood. He ended the relationship "because of my mental health he didn't want to deal with me." She didn't want to he relationship to end and "tried to fix it," but now thinks it is for the best, as he made some very hurtful comments. She contacted her ex yesterday which made her feel worse, and she made comments that she "can't deal with this anymore," and tried to cut her wrist (no lesions visible, says it was a light scratch). Her ex called police who brought her here, and she is upset that she was hospitalized. Her mood has been "off" for the past month, and prior to that she had mostly anxiety. She identifies her boyfriend's "reaction to my anxiety" as the trigger for her depression, as she had tried to open up to him about how she was feeling and "it blew up in my face." She has a roommate who is supportive. She reports panic attacks with "nonstop crying and screaming" that used to last hours prior to starting medication, but now last 10-15 min. The past few weeks she has been ruminating on getting her boyfriend back. Is not sure if she worries excessively. 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 She has had suicidal thoughts "a couple times" in the past year. She's been on Lexapro since 2018, increased from 15mg to 20mg daily last Saturday. Denies h/o manic or psychotic episodes, OCD, eating disorder. States she didn't think mother would support her being hospitalized as when she was in the ER last week, she discouraged it. Physical Exam Mental Examination See admission H&P and DOD summary. Vital Signs (Past 24 Hours) Last Vital Signs Temp 36.6 C 11/13/20 06:00 Pulse 88 11/13/20 06:20 Resp 16 11/13/20 06:00 BP 99/64 L 11/13/20 06:20 Pulse Ox 100 11/09/20 19:30 Principal Diagnosis major depressive disorder Psychiatric Data See daily stay summary. In short, safety was maintained and the patient was cooperative with care. Medication changes included carrying out titration of Lexapro 20 mg and the addition of Buspar 5 mg BID for anxiety and they tolerated this well. A family session was held and safety plan was completed prior to discharge. Day of Discharge Assessment Today the patient voices readiness for discharge. They note improvement in mood and deny thoughts to harm self or others. Thoughts remain organized and they are improved from admission. There is no evidence of psychosis. They agree to take mediations as prescribed and keep follow-up appointments. They are stable for discharge to outpatient level of care and parents are in route to excelsior picker, help pack, and return to [place] for ongoing care. She has providers identified for follow up appointments. Confirmed she has own supply of Lexapro 20 mg and since travelling her Buspar was sent to preferred pharmacy in [place]. Transition of Care Transition Of Care Record: was reviewed with the patient Advance Directives Advance Directives Information Provided: Yes Advance Directives: No Mental Health Advance Directive: No Advance Directives on File: No Living Will: No Power of Talent Acquisition Director: No Advance Directives Reason:: Declines as Mental Health Visit. Risk Factors Assessment Male: No : Yes Do You Have Access To A Gun?: No Health Problems: No Mental Health Diagnoses: Yes Substance Use Disorders: No Previous Attempt: Yes Family History of Suicide: No Previous Psychiatric Hospitalization: No Hopelessness: No Smoker: No Protective Factors Assessment : No Responsible for Young Children: No Employed: No Stable Relationships: Yes Supportive Family: Yes Good Rapport with Provider: Yes Tobacco Cessation at Discharge Tobacco Cessation Medication Prescribed at Discharge: Not Applicable/Non-Smoker Total Time Total Time Spent: Greater Than 30 Minutes Total Time Includes: Examination of the patient, Discharge Planning and Medication Reconciliation Discharge Data Lab Results 11/09/20 11/09/20 11/09/20 12:22 12:22 12:22 WBC RBC Hgb Hct MCV MCH MCHC RDW Std Deviation RDW Coeff of Tony Plt Count MPV Immature Gran % (Auto) Neut % (Auto) Lymph % (Auto) Hubbard % (Auto) Eos % (Auto) Baso % (Auto) Neut # (Auto) Lymph # (Auto) Hubbard # (Auto) Eos # (Auto) Baso # (Auto) Immature Gran # (Auto) Sodium Potassium Chloride Carbon Dioxide Anion Gap BUN Creatinine Est Cr Clr Drug Dosing Est GFR ( Amer) Est GFR (Non-Af Amer) BUN/Creatinine Ratio Glucose Calcium Total Bilirubin AST ALT Alkaline Phosphatase Total Protein Albumin Globulin Albumin/Globulin Ratio TSH Urine Color Dark Yellow Urine Appearance Cloudy A Urine pH 6.0 Ur Specific [place] 1.036 H Urine Protein 1+ H Urine Glucose (UA) Negative Urine Ketones 3+ H Urine Blood 3+ H Urine Nitrite Negative Urine Bilirubin 1+ H Urine Urobilinogen Negative Ur Leukocyte Esterase 2+ H Urine WBC (Auto) >30 H Urine RBC (Auto) 5-10 H U Hyaline Cast (Auto) 1-5 U Epithel Cells (Auto) >30 H Urine Bacteria (Auto) 2+ H Urine Mucus Present A Urine Yeast Not Reportable Urine Test Negative Salicylates Urine Opiates Screen Neg Ur Methadone, Qual Neg Acetaminophen Urine Barbiturates Neg Ur Phencyclidine (PCP) Neg U Amphetamin/Meth Scrn Neg MDMA (Ecstasy) Screen Neg U Benzodiazepines Scrn Neg Ur Cocaine Metabolite Neg U Marijuana (THC) Screen Neg Ethyl Alcohol mg/dL COVID-19 Eval Order SARS-CoV-2 (PCR) Influenza Type A (PCR) Influenza Type B (PCR) RSV (RT-PCR) 11/09/20 11/09/20 11/09/20 12:55 12:55 12:55 WBC 7.71 RBC 4.64 Hgb 13.0 Hct 38.1 MCV 82.1 MCH 28.0 MCHC 34.1 RDW Std Deviation 40.9 RDW Coeff of Tony 13.5 Plt Count 264 MPV 9.8 Immature Gran % (Auto) 0.1 Neut % (Auto) 69.5 Lymph % (Auto) 26.2 Hubbard % (Auto) 4.0 Eos % (Auto) 0.1 Baso % (Auto) 0.1 Neut # (Auto) 5.35 Lymph # (Auto) 2.02 Hubbard # (Auto) 0.31 Eos # (Auto) 0.01 Baso # (Auto) 0.01 Immature Gran # (Auto) 0.01 Sodium 139 Potassium 3.7 Chloride 108 H Carbon Dioxide 22 Anion Gap 9.0 BUN 13 Creatinine 0.62 Est Cr Clr Drug Dosing 118.7 Est GFR ( Amer) 149.4 Est GFR (Non-Af Amer) 128.9 BUN/Creatinine Ratio 20.8 H Glucose 71 Calcium 9.3 Total Bilirubin 0.4 AST 22 ALT 25 Alkaline Phosphatase 68 Total Protein 8.4 H Albumin 3.8 Globulin 4.6 H Albumin/Globulin Ratio 0.8 L TSH 0.517 Urine Color Urine Appearance Urine pH Ur Specific [place] Urine Protein Urine Glucose (UA) Urine Ketones Urine Blood Urine Nitrite Urine Bilirubin Urine Urobilinogen Ur Leukocyte Esterase Urine WBC (Auto) Urine RBC (Auto) U Hyaline Cast (Auto) U Epithel Cells (Auto) Urine Bacteria (Auto) Urine Mucus Urine Yeast Urine Test Salicylates < 1.7 L Urine Opiates Screen Ur Methadone, Qual Acetaminophen < 2 L Urine Barbiturates Ur Phencyclidine (PCP) U Amphetamin/Meth Scrn MDMA (Ecstasy) Screen U Benzodiazepines Scrn Ur Cocaine Metabolite U Marijuana (THC) Screen Ethyl Alcohol mg/dL COVID-19 Eval Order SARS-CoV-2 (PCR) Influenza Type A (PCR) Influenza Type B (PCR) RSV (RT-PCR) 11/09/20 11/09/20 11/09/20 12:55 16:40 16:40 WBC RBC Hgb Hct MCV MCH MCHC RDW Std Deviation RDW Coeff of Tony Plt Count MPV Immature Gran % (Auto) Neut % (Auto) Lymph % (Auto) Hubbard % (Auto) Eos % (Auto) Baso % (Auto) Neut # (Auto) Lymph # (Auto) Hubbard # (Auto) Eos # (Auto) Baso # (Auto) Immature Gran # (Auto) Sodium Potassium Chloride Carbon Dioxide Anion Gap BUN Creatinine Est Cr Clr Drug Dosing Est GFR ( Amer) Est GFR (Non-Af Amer) BUN/Creatinine Ratio Glucose Calcium Total Bilirubin AST ALT Alkaline Phosphatase Total Protein Albumin Globulin Albumin/Globulin Ratio TSH Urine Color Urine Appearance Urine pH Ur Specific [place] Urine Protein Urine Glucose (UA) Urine Ketones Urine Blood Urine Nitrite Urine Bilirubin Urine Urobilinogen Ur Leukocyte Esterase Urine WBC (Auto) Urine RBC (Auto) U Hyaline Cast (Auto) U Epithel Cells (Auto) Urine Bacteria (Auto) Urine Mucus Urine Yeast Urine Test Salicylates Urine Opiates Screen Ur Methadone, Qual Acetaminophen Urine Barbiturates Ur Phencyclidine (PCP) U Amphetamin/Meth Scrn MDMA (Ecstasy) Screen U Benzodiazepines Scrn Ur Cocaine Metabolite U Marijuana (THC) Screen Ethyl Alcohol mg/dL < 3.0 COVID-19 Eval Order CovFluRsv at [facility] SARS-CoV-2 (PCR) NEGATIVE Influenza Type A (PCR) Negative Influenza Type B (PCR) Negative RSV (RT-PCR) Negative Hospital Course (1) Suicidal ideation: 11/10 - Continue voluntary hospitalization, suicide checks for safety. - Encourage group attendance and participation, work on healthy coping skills and discharge safety plan. She would like a family meeting with her stepfather. - Coordinate w/ outpatient clinicians, will needs regular therapy and ongoing psychiatric care at discharge. 11/11 - Pt denying SI today, assist with completion of written safety plan Reviewed 11/12/20. She was hoping for discharge today to spend time with friends but reviewed safety plan included family coming to transition home and she was agreeable to continue observation and treatment until tomorrow. (2) Depression: 11/10 - Exacerbated by recent breakup and hurtful statements from connie. Focused on wanting a short stay, with discharge over the weekend, as parents are coming and she plans to return home with them to [place]. - She has lost pavan in the escitalopram, does not feel it is helping sufficiently, and would like to try a different medication. She has no previous med trials, discussed trial of another SSRI, vs augmentation with buspirone. She would like to continue escitalopram 20 mg at bedtime and add buspirone to target anxiety, Will start 5mg bid and titrate as tolerated. Reviewed risks, benefits and side effects. 11/11 - Continue current medication regimen. - Family meeting with parents yesterday, reportedly went well though there will be an ongoing need for open and honest communication with supports - Continue to encourage participation with group programming - Assist with completion of a written safety plan Reviewed 11/12/20. Continue Lexapro. (3) Anxiety: 11/10 - symptoms of panic and CLIVE, has responded to SSRI, which was just increased 5 days ago as above. 11/11 - Continue as above - pt reporting initial fatigue with addition of buspirone, so will keep dose consistent for now. We did discuss option to continue titration as tolerated - Continue to assist with development of healthy and effective coping strategies Reviewed 11/12/20. Continue Buspar. Mental Health & Subst Abuse Tx Psychiatrist Name of Psychiatrist: Dr. April Briceno Date of Appointment with Psychiatrist: 11/29/20 Time of Appointment with Psychiatrist: 11:30 Therapist Name of Therapist: Jane Hagan (private practice in [place]) Tool Design Drafter Name of Tool Design Drafter: [facility] Phone Number for Tool Design Drafter: [phone] Date of Appointment with Tool Design Drafter: 11/15/20 Time of Appointment with Tool Design Drafter: 2:00 p.m. Case Management Appointment Comment: Will call you to discuss schooling Post Discharge Appointments Primary Care Physician Name Of Family Doctor: Dr. Owens, [facility] Smoking Cessation Counseling Tobacco Cessation Medication Prescribed at Discharge: Not Applicable/Non-Smoker Discharge Plan Discharge Items Patient Disposition: Home - Self-Care Reason For Visit: MDD Discharge Diagnosis: major depressive disorder Activity: Resume your previous activity Non-emergency contact: Primary Care Provider, Psychiatrist and Therapist Call non-emergency contact if: you have any medication questions and your symptoms worsen Follow-up/Referrals: PCP,NO [Primary Care Provider] - Diet: Regular Addtl Attending Provider Instructions: SPECIAL CARE INSTRUCTIONS: 1. Follow through with your scheduled aftercare appointments. If unable to keep an appointment, please call to reschedule. 2. Take your medication only as prescribed. Medication should not be changed or stopped without the approval of your doctor. In the event of worsening symptoms or concerns about side effects, contact your doctor immediately. 3. Utilize new healthy coping skills, anger management skills, and stress management skills learned during your hospitalization. Journal feelings and process them with a support person. Identify stressors or situations that may result in relapse, deterioration or inappropriate behaviors and develop a plan to deal with those issues. 4. If your coping skills are ineffective and you are in crisis, contact your outpatient providers for direction. If unable to reach your providers, please call the [facility] CRISIS LINE AT , go to the [facility] walk-in center at [address] [place] [address] A, [place], or go to the closest Emergency Room. 5. Avoid alcohol and un-prescribed drugs. 6. You have been provided with the Mental Health Advance Directives Pamphlet for your review. AFTERCARE APPOINTMENTS: * Please call your insurance company prior to your scheduled appointment to confirm your aftercare providers are covered. Take your insurance information to your appointments. WHO TO CALL AND WHEN: Medical Emergencies: For questions or emergencies related to your hospital stay, please contact the Inpatient Behavioral Health Unit at [phone]. A software tester is on-call 04/02 for the Behavioral Health Unit for emergencies At any time you feel your situation is an emergency, you may also call 911 immediately. Pending Studies at Discharge: No Stand-Alone Forms: [facility] [employer], Smoking Cessation Medications and DC Order Prescriptions: New escitalopram oxalate 20 mg Tablet 20 mg PO HS 1 Days Qty: 1 RF: 0 buspirone 5 mg tablet 5 mg PO BID Qty: 60 RF: 0 Continued drospirenone-ethinyl estradiol 3-0.02 mg Tablet 1 tab PO DAILY RF: 0 Discontinued escitalopram oxalate 10 mg tablet 15 mg PO DAILY RF: 0 Discharge Orders: Discharge Order (Routine); Ordered 11/13/20 Ordered By: Nicole Berry Admission Data Admit Date/Time: 11/09/20 19:22 Attending Provider: Francesca Scruggs Admit Provider: Colin Stovall Primary Care Provider: PCP,NO Other Interventions: PSY Interdisciplinary Discharge Planning Last Done: 11/11/20 14:00 Coding Level of Care Code 90818 D/C day mgmt > 30 min Diagnoses Suicidal ideation R45.851 Depression F33.9 Active/Remission status: currently active Depression Type: major depressive disorder Major depression episode severity: unspecified Major depression recurrence: recurrent Anxiety F41.9
== END 2020-11-13 12:20 | disposition home or self-care (01) | DRG 885 ==
LOC: ED 12:14 → 3S 19:22